=== PATIENT | male | born 1970 | race Caucasian/White ===

== ENCOUNTER 2017-04-17 04:58 | Emergency (ER) | payer MEDICARE, MEDICAID ==
[~2017-04-17] VITALS: Ht 188 cm; Wt 122.5 kg
[~2017-04-17 04:58] MED LIST: ACET500T68 PO; AMOX-556 PO; AMOX-559 PO; APRE30TA2 PO; CEFU500T50 PO; CHOL4PAC15 PO; CLO10 MT; CYCL10TA29 PO; DICL100G39 TOP; FERR325T24 PO; FLU45SYR25 IM ONLY; FLU60SYR30 IM ONLY; FLUC100T35 PO; FURO-45 PO; HYDR-2966 PO; HYDR12.561 PO; IBUP600T22 PO; INF100I IV; LEFL20TA PO; LEFL20TA6 PO; LEVO-85 PO; LEVO25TA61 PO; LIDO40SO MM; LISI20TA29 PO; MORP-18 PO; MORP-181 PO; MORP20CA PO; MORP60TA PO; MOXI400T2 PO; ONDA4TAB PO; OXYC-869 PO; OXYC-870 PO; OXYC15TA79 PO; PNEU0.5D3 IM; POLY119P24 PO; POLY17PO25 PO; PRED-1 PO; PRED2.5T6 PO; PRED20TA6 PO; TIZA-1 PO; TRAM-420 PO; TRIA15CR40 TP; [UNRECOGNIZED DRUG - CODE] PO
[2017-04-17 05:08] VITALS: BP 159/95
[2017-04-17] MEDS ORDERED: DEXAMETHASONE 4 MG TAB PO ONE (05:25)
[2017-04-17] MEDS ORDERED: AMOXICILLIN 500 MG CAP PO ONE (05:25)
[2017-04-17] MEDS ORDERED: ONDANSETRON 4 MG ODT TABDP SL ONE (05:25)
[2017-04-17] MEDS ORDERED: AMOX-362 PO (05:31)
--- NOTE | 2017-04-17 05:32 | ER Report ---
History and Physical Time Seen By MD: 05:26 Hx. of Stated Complaint: Pt. here for nausea, vomiting, and sore throat x 1 week. States his symptoms started a few days after his remicade infusion. HPI/ROS CHIEF COMPLAINT: Sore throat HISTORY OF PRESENT ILLNESS: A 46-year-old male on Remicade for psoriatic arthritis presents with sore throat 1 week worsening with right-sided lymph node swelling anterior cervical chain and increased frequency of nausea and vomiting denies abdominal pain diarrhea loose stools or bloody stools. Concerned about progression and unable to get and see his doctor for approximately 1 week. No other concerns or complaints today. REVIEW OF SYSTEMS: Respiratory: No cough, no dyspnea. Cardiovascular: No chest pain, no palpitations. Gastrointestinal: No vomiting, no abdominal pain. Musculoskeletal: No back pain. Allergies: Coded Allergies: codeine (Verified Allergy, Severe, BRONCHOSPASM, 04/17/17) NSAIDS (Non-Steroidal Anti-Inflamma (Verified Adverse Reaction, Intermediate, NAUSEA/VOMITING, 04/17/17) Home Meds Active Scripts Prednisone (PREDNISONE) 2.5 Mg Tablet, 1-2 TAB PO QDAY, #30 TAB 0 Refills Start after finishing 20mg tabs 2 tabs daily x 3 days 1 tab daily thereafter until starting remicade Prov:IVÁN ESPINO APRN 03/29/17 Morphine Sulfate (MORPHINE SULFATE CR) 60 Mg Tablet.er, 1 TAB PO Q12H, #60 TAB 0 Refills May fill on or after 05/30/17 Prov:IVÁN ESPINO APRN 03/26/17 Morphine Sulfate (MORPHINE SULFATE) 30 Mg Tablet, 1 TAB PO QID Y for PAIN, #120 TAB 0 Refills may fill on or after 05/30/17 Prov:IVÁN ESPINO APRN-C 03/26/17 Furosemide (FUROSEMIDE) 20 Mg Tablet, 1 TAB PO DAILY, #90 TAB 0 Refills Prov:IVÁN ESPINO APRN 02/19/17 Prednisone (PREDNISONE) 20 Mg Tablet, 1-3 TAB PO QDAY, #35 TAB 0 Refills 2 tabs daily x 10 days 1 tab daily x 10 days 1/2 tab daily x 10 days Prov:IVÁN ESPINO APRN 02/15/17 Levothyroxine Sodium (LEVOTHYROXINE SODIUM) 25 Mcg Tablet, 1 TAB PO QDAY, #90 TAB 2 Refills Prov:IVÁN ESPINO APRN [facility] 02/11/17 Triamcinolone Acetonide 0.1% Cr 15 Gm Tube (TRIAMCINOLONE ACETONIDE 0.1% CREAM) 15 Gm Cream..g., 1 LESLY TP BID, #60 G 0 Refills Apply to rash on lower legs until resolved Prov:IVÁN ESPINO APRN [facility] 01/21/17 Lisinopril (LISINOPRIL) 20 Mg Tablet, 1 TAB PO QDAY, #90 TAB 3 Refills Prov:IVÁN ESPINO APRN [facility] 10/05/16 Polyethylene Glycol 3350 (MIRALAX) 119 Gm Powder, 17 GM PO DAILY, #2 BOTTLE 2 Refills Prov:IVÁN ESPINO APRN [facility] 09/04/16 Reported Medications Acetaminophen (TYLENOL EXTRA STRENGTH) 500 Mg Tablet, 1000 MG PO QID 03/20/15 Hx Smoking: Yes Smoking Status: Former Smoker Exposure to Second Hand Smoke?: No Hx Substance Use Disorder: No Hx Alcohol Use: No Constitutional Vital Sign - Last 24 Hours 04/17/17 05:08 Temp 97.8 Pulse 86 Resp 20 B/P (MAP) 159/95 Pulse Ox 96 O2 Delivery Room Air Physical Exam General Appearance: The patient is alert, has no immediate need for airway protection and no current signs of toxicity. No acute distress Eyes: Pupils equal and round no injection. HEENT: Right-sided cervical lymphadenopathy is tender, posterior pharyngeal erythema with slight exudate seen no signs of peritonsillar abscess, tympanic membranes normal bilaterally Respiratory: Chest is non tender, lungs are clear to auscultation. Cardiac: regular rate and rhythm no murmurs gallops or rubs Gastrointestinal: Abdomen is soft and non tender, no masses, bowel sounds normal. Musculoskeletal: Neck: Neck is supple and non tender. Extremities have full range of motion and are non tender. Skin: No rashes or lesions. No edema DIFFERENTIAL DIAGNOSIS: After history and physical exam differential diagnosis was considered for pharyngitis, streptococcal infection, influenza no signs of pneumonia or other SBI Medical Decision Making ED Course/Re-evaluation ED Course Care plan agreed upon Oral fluid challenge after nausea medicine here 1st dose of antibiotics here Decadron for throat pain and swelling Discharge to outpatient follow-up ED return precautions given Decision to Disposition Date: Apr 17, 2017 Decision to Disposition Time: 05:30 Depart Departure Latest Vital Signs Vital Signs Date Time Temp Pulse Resp B/P (MAP) Pulse Ox O2 Delivery O2 Flow Rate FiO2 04/17/17 05:08 97.8 86 20 159/95 96 Room Air Impression: Primary Impression: Pharyngitis, acute Additional Impression: Cervical lymphadenopathy Condition: Improved Disposition: HOME OR SELF-CARE Referrals: IVÁN ESPINO APRN [facility] (PCP) New Scripts Amoxicillin (AMOXICILLIN) 500 Mg Capsule 1 CAP PO Q8H for 10 Days, #30 CAPSULE 0 Refills Prov: MEET BLISS MD 04/17/17 Patient Instructions: Pharyngitis (ED) Problem Qualifiers Primary Impression: Pharyngitis, acute Pharyngitis/tonsillitis etiology: unspecified etiology Qualified Codes: J02.9 - Acute pharyngitis, unspecified MEET BLISS MD Apr 17, 2017 05:32
== END 2017-04-17 05:40 | disposition home or self-care (01) ==
LOC: ER 05:01
DX: J02.9 Acute pharyngitis, unspecified (principal); R59.1 Generalized enlarged lymph nodes
CPT/HCPCS: 99281

== ENCOUNTER 2017-05-16 04:23 | Emergency (ER) | payer MEDICARE, MEDICAID ==
[~2017-05-16 04:23] MED LIST changes: +AMOX-362 PO
--- NOTE | 2017-05-16 04:26 | ER Report ---
History and Physical Time Seen By MD: 04:26 HPI/ROS CHIEF COMPLAINT: Swollen joints can't move, pain everywhere HISTORY OF PRESENT ILLNESS: 46-year-old male with a history of psoriatic arthritis. He recently was started on Remicade. He was weaned off his prednisone. His intervals between Remicade is 8 weeks, which seems unusually long period patient. I think is withdrawing from his steroids. His joints seem swollen. He is noting pain everywhere. He is on chronic pain medication high-dose morphine. Patient notes some difficulty breathing, no chest pain, no fever or chills. REVIEW OF SYSTEMS: Respiratory: No cough, no dyspnea. Cardiovascular: No chest pain, no palpitations. Gastrointestinal: No vomiting, no abdominal pain. Musculoskeletal: As above Allergies: Coded Allergies: codeine (Verified Allergy, Severe, BRONCHOSPASM, 04/17/17) NSAIDS (Non-Steroidal Anti-Inflamma (Verified Adverse Reaction, Intermediate, NAUSEA/VOMITING, 04/17/17) Home Meds Active Scripts Furosemide (FUROSEMIDE) 20 Mg Tablet, 1 TAB PO DAILY, #90 TAB 1 Refill Prov:IVÁN ESPINO APRN 05/16/17 Prednisone 10 Mg Tab (PREDNISONE 10 MG TAB) 10 Mg Tablet, 10 MG PO QDAY Y for reduce arthritis inflammation, #9 2 tabs daily for 3 days 1 tab daily for 3 days Prov:EDGARD CLEVELAND DO 05/16/17 Morphine Sulfate (MORPHINE SULFATE CR) 60 Mg Tablet.er, 1 TAB PO Q12H, #60 TAB 0 Refills May fill on or after 05/30/17 Prov:IVÁN ESPINO APRN 03/26/17 Morphine Sulfate (MORPHINE SULFATE) 30 Mg Tablet, 1 TAB PO QID Y for PAIN, #120 TAB 0 Refills may fill on or after 05/30/17 Prov:IVÁN ESPINO APRN-Delfin 03/26/17 Levothyroxine Sodium (LEVOTHYROXINE SODIUM) 25 Mcg Tablet, 1 TAB PO QDAY, #90 TAB 2 Refills Prov:IVÁN ESPINO APRN-Delfin 02/11/17 Triamcinolone Acetonide 0.1% Cr 15 Gm Tube (TRIAMCINOLONE ACETONIDE 0.1% CREAM) 15 Gm Cream..g., 1 LESLY TP BID, #60 G 0 Refills Apply to rash on lower legs until resolved Prov:IVÁN ESPINO APRN [facility] 01/21/17 Lisinopril (LISINOPRIL) 20 Mg Tablet, 1 TAB PO QDAY, #90 TAB 3 Refills Prov:IVÁN ESPINO APRN [employer] 10/05/16 Polyethylene Glycol 3350 (MIRALAX) 119 Gm Powder, 17 GM PO DAILY, #2 BOTTLE 2 Refills Prov:IVÁN ESPINO APRN [facility] [facility] 09/04/16 Reported Medications Infliximab (REMICADE) 100 Mg Soln, 100 MG IV 05/16/17 Acetaminophen (TYLENOL EXTRA STRENGTH) 500 Mg Tablet, 1000 MG PO QID 03/20/15 Discontinued Scripts Prednisone (PREDNISONE) 2.5 Mg Tablet, 1 TAB PO QDAY, #30 TAB 0 Refills Prov:IVÁN ESPINO APRN [facility] [facility] 04/23/17 Reviewed Nurses Notes: Yes Old Medical Records Reviewed: Yes Hx Smoking: Yes Smoking Status: Former Smoker Exposure to Second Hand Smoke?: No Hx Substance Use Disorder: No Hx Alcohol Use: No Constitutional Vital Sign - Last 24 Hours 05/16/17 05/16/17 05/16/17 05/16/17 04:28 04:29 04:38 04:53 Temp 99.5 Pulse 93 86 88 Resp 22 B/P (MAP) 139/76 (97) 137/76 Pulse Ox 95 90 91 O2 Delivery Room Air 05/16/17 05/16/17 05/16/17 05/16/17 05:08 05:13 05:20 05:28 Pulse 86 85 83 B/P (MAP) 119/68 (85) Pulse Ox 86 88 05/16/17 05:30 B/P (MAP) 111/67 (82) Physical Exam General Appearance: The patient is alert, has no immediate need for airway protection and no current signs of toxicity. Moderate distress HEENT: Pupils equal and round no injection. TMs normal, oropharynx without redness or exudate, mucous membranes are moist Respiratory: Chest is non tender, lungs are clear to auscultation. Cardiac: regular rate and rhythm Gastrointestinal: Abdomen is soft and non tender, no masses, bowel sounds normal. Musculoskeletal: Neck: Neck is supple and non tender. Extremities have full range of motion and are non tender. All joints are warm to the touch and show moderate effusion as well as tenderness Skin: No rashes or lesions. DIFFERENTIAL DIAGNOSIS: After history and physical exam differential diagnosis was considered for acute arthritis, steroid withdrawal, opiate pain medication withdrawal Medical Decision Making ED Course/Re-evaluation Clinical Indication for ER IV: IV Access ED Course Patient admitted to an examination room. H&P is done. The differential diagnoses was considered. Patient likely having withdrawals from his steroids. He's have an acute flare of his psoriatic arthritis. Patient's treated with IV Solu-Medrol 125 mg IV. He reports feeling better. He has plenty of pain medication take at home. He is given a prednisone burst. 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 Decision to Disposition Date: May 16, 2017 Decision to Disposition Time: 05:01 Depart Departure Latest Vital Signs Vital Signs Date Time Temp Pulse Resp B/P (MAP) Pulse Ox O2 Delivery O2 Flow Rate FiO2 05/16/17 05:30 111/67 (82) 05/16/17 05:28 83 88 05/16/17 04:29 99.5 22 Room Air Impression: Primary Impression: Acute arthritis Additional Impressions: History of psoriatic arthritis Chronic pain syndrome Condition: Improved Disposition: HOME OR SELF-CARE Referrals: IVÁN ESPINO APRNP-C (PCP) New Scripts Prednisone 10 Mg Tab (PREDNISONE 10 MG TAB) 10 Mg Tablet 10 MG PO QDAY Y for reduce arthritis inflammation, #9 2 tabs daily for 3 days 1 tab daily for 3 days Prov: EDGARD CLEVELAND DO 05/16/17 Patient Instructions: Arthritis (ED) Additional Instructions: Follow-up with your primary care and journey lineman as soon as possible Problem Qualifiers EDGARD CLEVELAND DO May 16, 2017 04:26
[2017-05-16] MEDS ORDERED: INF100I IV (04:34)
[2017-05-16] MEDS ORDERED: methylPREDNIS SUCC 125 MG/2ML IVP ONE (04:45)
[2017-05-16] MEDS ORDERED: PRED-1 PO (05:03)
[2017-05-16 05:30] VITALS: BP 111/67
[2017-05-16] MEDS ORDERED: FURO-45 PO (16:31)
[2017-05-17] MEDS ORDERED: FURO-45 PO (08:39)
== END 2017-05-16 05:39 | disposition home or self-care (01) ==
LOC: ER 05:17
DX: G89.4 Chronic pain syndrome (principal); L40.50 Arthropathic psoriasis, unspecified
CPT/HCPCS: 96374; 99284; J2930

== ENCOUNTER 2017-05-23 05:39 | Emergency (ER) | payer MEDICARE, MEDICAID ==
--- NOTE | 2017-05-23 05:50 | ER Report ---
History and Physical Time Seen By MD: 05:53 Hx. of Stated Complaint: PT COMPLAINT IS THAT HIS ARTHRITIS IS SO PAINFUL THAT IT IS CAUSING NAUSEA. HPI/ROS CHIEF COMPLAINT: arthritis pain, nausea with vomiting HISTORY OF PRESENT ILLNESS: This is a 46 year old male. He is having an arthritis flare up. Has had about a week of pain that has been steadily worsening. He has an infusion of Remicade scheduled in 5 days and just needs to get through till then. He was on Prednisone in the past and weaned off and has been off for the last month. He mainly has pain in left elbow and left knee. No rashes or redness of the joints. Worsens with weight bearing and range of motion. He denies any fevers or chills. No chest pain or palpitations. No shortness or breath or cough. No abdominal pain. He says the nausea and vomiting is because of the severe pain. Has pain associated with skin cracking from psoriasis on his low back. Allergies: Coded Allergies: codeine (Verified Allergy, Severe, BRONCHOSPASM, 05/23/17) NSAIDS (Non-Steroidal Anti-Inflamma (Verified Adverse Reaction, Intermediate, NAUSEA/VOMITING, 05/23/17) Home Meds Active Scripts Ondansetron (ZOFRAN ODT) 4 Mg Tab.rapdis, 4 MG PO Q6H Y for NAUSEA/VOMITING, # 20 TAB.JERMAINE 0 Refills Prov:TIM AMBROCIO MD 05/23/17 Oxycodone Hcl/Acetaminophen (PERCOCET 5-325 MG TABLET) 1 Each Tablet, 1 EACH PO Q4H Y for PAIN, #12 TAB 0 Refills Prov:TIM AMBROCIO MD 05/23/17 Prednisone (PREDNISONE) 20 Mg Tablet, 60 MG PO QDAY for 4 Days, #12 TAB 0 Refills Prov:TIM AMBROCIO MD 05/23/17 Furosemide (FUROSEMIDE) 20 Mg Tablet, 1 TAB PO DAILY, #90 TAB 1 Refill Prov:IVÁN ESPINO APRN 05/17/17 Morphine Sulfate (MORPHINE SULFATE CR) 60 Mg Tablet.er, 1 TAB PO Q12H, #60 TAB 0 Refills May fill on or after 05/30/17 Prov:IVÁN ESPINO APRN-Delfin 03/26/17 Morphine Sulfate (MORPHINE SULFATE) 30 Mg Tablet, 1 TAB PO QID Y for PAIN, #120 TAB 0 Refills may fill on or after 05/30/17 Prov:IVÁN ESPINO APRN-Delfin 03/26/17 Levothyroxine Sodium (LEVOTHYROXINE SODIUM) 25 Mcg Tablet, 1 TAB PO QDAY, #90 TAB 2 Refills Prov:IVÁN ESPINO APRN-C 02/11/17 Lisinopril (LISINOPRIL) 20 Mg Tablet, 1 TAB PO QDAY, #90 TAB 3 Refills Prov:IVÁN ESPINO APRN-C 10/05/16 Polyethylene Glycol 3350 (MIRALAX) 119 Gm Powder, 17 GM PO DAILY, #2 BOTTLE 2 Refills Prov:IVÁN ESPINO APRN-C 09/04/16 Reported Medications Infliximab (REMICADE) 100 Mg Soln, 100 MG IV 05/16/17 Acetaminophen (TYLENOL EXTRA STRENGTH) 500 Mg Tablet, 1000 MG PO QID 03/20/15 Discontinued Scripts Prednisone 10 Mg Tab (PREDNISONE 10 MG TAB) 10 Mg Tablet, 10 MG PO QDAY Y for reduce arthritis inflammation, #9 2 tabs daily for 3 days 1 tab daily for 3 days Prov:EDGARD CLEVELAND DO 05/16/17 Triamcinolone Acetonide 0.1% Cr 15 Gm Tube (TRIAMCINOLONE ACETONIDE 0.1% CREAM) 15 Gm Cream..g., 1 LESLY TP BID, #60 G 0 Refills Apply to rash on lower legs until resolved Prov:IVÁN ESPINO APRN 01/21/17 Prednisone (PREDNISONE) 2.5 Mg Tablet, 1 TAB PO QDAY, #30 TAB 0 Refills Prov:IVÁN ESPINO APRN-C 04/23/17 Furosemide (FUROSEMIDE) 20 Mg Tablet, 1 TAB PO DAILY, #90 TAB 0 Refills Prov:IVÁN ESPINO APRN 02/19/17 Reviewed Nurses Notes: Yes Hx Smoking: Yes Smoking Status: Former Smoker Exposure to Second Hand Smoke?: No Hx Substance Use Disorder: No Hx Alcohol Use: No Constitutional Vital Sign - Last 24 Hours 05/23/17 05/23/17 05:47 07:00 Temp 98.4 Pulse 93 85 Resp 16 16 B/P (MAP) 137/68 109/66 (80) Pulse Ox 94 91 O2 Delivery Room Air Room Air Physical Exam General Appearance: The patient is alert. Acute distress because of nausea and pain. Eyes: Pupils are equal, round. No pallor, injection or icterus. ENT: Mucous membranes are moist. Neck: Supple and non tender. Respiratory: Lungs are clear to auscultation. Cardiovascular: Regular rate and rhythm. No murmurs, gallops or rubs. Gastrointestinal: Abdomen is soft with diffuse mild discomfort but no focal tenderness. Nondistended. No rebound or guarding. Normal active bowel sounds. Neurological: Alert and oriented x3. Normal sensation in extremities. Skin: Warm and dry. Psoriasis rash on low back. Without redness or warmth over the psoriasis areas. No redness or rash over left elbow and left knee. Skin over the elbow is not increased temperature. Knee has a slight increased warmth compared to surrounding skin, but very mild. Musculoskeletal: No tenderness of the joints with palpation, but do increase in pain with range of motion. DIFFERENTIAL DIAGNOSIS: After history and physical exam, differential diagnosis was considered for increasing pain with arthritis flare up. Medical Decision Making ED Course/Re-evaluation ED Course No obvious signs of infection and discussed this possibility with the patient. He does not really want to do labs at this time. He has been through this before and would really just want to have Prednisone at this time. We talked about his past use of prednisone and has been on high doses. We will give him Prednisone 60mg once a day for 5 days as a burst. I also offered to give him some Percocet and Zofran as well. If pain is not improving or if he is having fevers, worsening pain, hot skin over the joints, he agreed to come back in for further evaluation. Decision to Disposition Date: May 23, 2017 Decision to Disposition Time: 06:45 Depart Departure Latest Vital Signs Vital Signs Date Time Temp Pulse Resp B/P (MAP) Pulse Ox O2 Delivery O2 Flow Rate FiO2 05/23/17 07:00 85 16 109/66 (80) 91 Room Air 05/23/17 05:47 98.4 Impression: Primary Impression: Psoriatic arthritis Condition: Improved Disposition: HOME OR SELF-CARE Referrals: IVÁN ESPINO APRN [employer] (PCP) New Scripts Ondansetron (ZOFRAN ODT) 4 Mg Tab.rapdis 4 MG PO Q6H Y for NAUSEA/VOMITING, #20 TAB.JERMAINE 0 Refills Prov: TIM AMBROCIO MD 05/23/17 Oxycodone Hcl/Acetaminophen (PERCOCET 5-325 MG TABLET) 1 Each Tablet 1 EACH PO Q4H Y for PAIN, #12 TAB 0 Refills Prov: TIM AMBROCIO MD 05/23/17 Prednisone (PREDNISONE) 20 Mg Tablet 60 MG PO QDAY for 4 Days, #12 TAB 0 Refills Prov: TIM AMBROCIO MD 05/23/17 Patient Instructions: Arthritis (ED), Psoriasis (ED) Additional Instructions: If you develop fevers and chills, worsening of pain, or hot skin over the joints , please return for re-evaluation. Take Prednisone 20mg, take 3 tablets once a day for 4 more days starting tomorrow. Take Percocet 5/325, one every 4 hours as needed for pain. Take Zofran 4mg, one every 6 hours as needed for nausea. TIM AMBROCIO MD May 23, 2017 05:50
[2017-05-23] MEDS ORDERED: oxyCODONE/ACETAMIN 5/325MG TH 2 TAB/BOTTLE PO ONE (06:10)
[2017-05-23] MEDS ORDERED: predniSONE 20 MG TAB PO ONE (06:10)
[2017-05-23] MEDS ORDERED: ONDANSETRON 4 MG ODT TH SL ONE (06:10)
[2017-05-23] MEDS ORDERED: ONDANSETRON 4 MG ODT TABDP SL ONE (06:10)
[2017-05-23] MEDS ORDERED: PRED20TA6 PO (06:47)
[2017-05-23] MEDS ORDERED: OXYC-865 PO (06:47)
[2017-05-23] MEDS ORDERED: ONDA4TAB PO (06:47)
[2017-05-23 07:00] VITALS: BP 109/66
== END 2017-05-23 06:59 | disposition home or self-care (01) ==
LOC: ER 06:31
DX: L40.50 Arthropathic psoriasis, unspecified (principal)
CPT/HCPCS: 99284; A9270; J7512; Q0162; S0119

== ENCOUNTER 2017-05-28 07:47 | Outpatient (RCR) | payer MEDICARE, MEDICAID ==
[2017-04-05] MEDS: NS(*) 0.9% 100 ML BAG 100 ML IVPB PRN (08:30)
[2017-04-05] MEDS: LORATADINE 10 MG TAB PO PRN (08:56)
[2017-04-05] MEDS: ACETAMINOPHEN 500 MG TAB PO PRN (08:56)
[2017-04-05 08:57] LABS: PLATELET COUNT, AUTOMATED 371 K/uL (150-450)
[~2017-05-28] VITALS: Ht 188 cm; Wt 132.4 kg
[~2017-05-28 07:47] MED LIST changes: +ALTEPLASE RECOMB 2 MG VIAL IVP PRN; +DEXTROSE 5%(*) 100 ML BAG 100 ML IVPB PRN; +HEPARIN FLSH (PORT) 500 UN/5ML IVP PRN; +LIDOCAINE/SOD BICARB 8.4% SYR ID PRN; +NS(*) 0.9% 500 ML BAG 500 ML IV PRN; +OXYC-865 PO; +WATER STERILE 10 ML VIAL IVP PRN; +inFLIXimab 100 MG VIAL 700 MG in NS(*) 0.9% 250 ML BAG 250 ML IVPB ONE
[2017-05-28 08:32] LABS: PLATELET COUNT, AUTOMATED 440 K/uL (150-450)
[2017-05-28 08:35] VITALS: BP 163/90
[2017-05-28] MEDS: ACETAMINOPHEN 500 MG TAB PO PRN (08:48)
[2017-05-28] MEDS: NS(*) 0.9% 100 ML BAG 100 ML IVPB PRN (08:49)
[2017-05-28] MEDS: LORATADINE 10 MG TAB PO PRN (08:49)
[2017-05-28] MEDS ORDERED: inFLIXimab 100 MG VIAL 700 MG in NS(*) 0.9% 250 ML BAG 250 ML IVPB ONE (09:30)
[2017-05-28 13:06] VITALS: BP 156/103
[2017-06-06] MEDS ORDERED: PRED20TA6 PO (05:17)
[2017-06-20] MEDS ORDERED: MORP-18 PO ×3 (11:00→11:12)
[2017-06-20] MEDS ORDERED: MORP60TA PO ×3 (11:00→11:12)
[2017-06-20] MEDS ORDERED: LISI-374 PO (11:12)
[2017-07-04] MEDS ORDERED: POTA-23 PO (12:12)
== END 2017-07-03 ==
LOC: SPU 07:47
PROVIDERS: ATTEND Nurse Practitioner Family
DX: L40.50 Arthropathic psoriasis, unspecified (principal); L40.9 Psoriasis, unspecified; Z79.899 Other long term (current) drug therapy
CPT/HCPCS: 36415; 85025; 85651; 86140; 96365; 96366; A9270; J1745; J7050; 82040; 82247; 82310; 82374; 82435; 82565; 82947; 84075; 84132; 84155; 84295; 84450; 84460; 84520; 96413; 96415

== ENCOUNTER 2017-06-06 05:03 | Emergency (ER) | payer MEDICARE, MEDICAID ==
[~2017-06-06 05:03] MED LIST changes: -ALTEPLASE RECOMB 2 MG VIAL IVP PRN; -DEXTROSE 5%(*) 100 ML BAG 100 ML IVPB PRN; -HEPARIN FLSH (PORT) 500 UN/5ML IVP PRN; -LIDOCAINE/SOD BICARB 8.4% SYR ID PRN; -NS(*) 0.9% 500 ML BAG 500 ML IV PRN; -WATER STERILE 10 ML VIAL IVP PRN; -inFLIXimab 100 MG VIAL 700 MG in NS(*) 0.9% 250 ML BAG 250 ML IVPB ONE
--- NOTE | 2017-06-06 05:07 | ER Report ---
History and Physical Time Seen By MD: 05:06 HPI/ROS CHIEF COMPLAINT: Diffuse joint swelling and stiffness HISTORY OF PRESENT ILLNESS: 46-year-old male presents ambulatory to the ER complaining of psoriatic arthritis flare up. Patient's been seen in 2 previous occasions 05/16 and 05/23 with similar presentation. Patient notes that he began to stiffen up last night. He was on a prednisone burst from the of the . He was post follow-up with his primary care on the . Apparently his appointment was canceled due to his primary care providers family emergency. Patient notes stiffness in bilateral knees, right wrist, left elbow and left shoulder. Patient denies symptoms of fever, chills, productive cough or sore throat. REVIEW OF SYSTEMS: Respiratory: No cough, no dyspnea. Cardiovascular: No chest pain, no palpitations. Gastrointestinal: No vomiting, no abdominal pain. Musculoskeletal: As above Allergies: Coded Allergies: codeine (Verified Allergy, Severe, BRONCHOSPASM, 06/06/17) NSAIDS (Non-Steroidal Anti-Inflamma (Verified Adverse Reaction, Intermediate, NAUSEA/VOMITING, 06/06/17) Home Meds Active Scripts Prednisone (PREDNISONE) 20 Mg Tablet, 60 MG PO QDAY for psoriatic arthritis flare for 7 Days, #21 Prov:EDGARD CLEVELAND DO 06/06/17 Ondansetron (ZOFRAN ODT) 4 Mg Tab.rapdis, 4 MG PO Q6H Y for NAUSEA/VOMITING, # 20 TAB.JERMAINE 0 Refills Prov:TIM AMBROCIO MD 05/23/17 Furosemide (FUROSEMIDE) 20 Mg Tablet, 1 TAB PO DAILY, #90 TAB 1 Refill Prov:IVÁN ESPINO APRN 05/17/17 Morphine Sulfate (MORPHINE SULFATE CR) 60 Mg Tablet.er, 1 TAB PO Q12H, #60 TAB 0 Refills May fill on or after 05/30/17 Prov:IVÁN ESPINO APRN 03/26/17 Morphine Sulfate (MORPHINE SULFATE) 30 Mg Tablet, 1 TAB PO QID Y for PAIN, #120 TAB 0 Refills may fill on or after 05/30/17 Prov:IVÁN ESPINO APRN 03/26/17 Levothyroxine Sodium (LEVOTHYROXINE SODIUM) 25 Mcg Tablet, 1 TAB PO QDAY, #90 TAB 2 Refills Prov:IVÁN ESPINO APRN [employer] [employer] 02/11/17 Lisinopril (LISINOPRIL) 20 Mg Tablet, 1 TAB PO QDAY, #90 TAB 3 Refills Prov:IVÁN ESPINO APRN [employer] 10/05/16 Polyethylene Glycol 3350 (MIRALAX) 119 Gm Powder, 17 GM PO DAILY, #2 BOTTLE 2 Refills Prov:IVÁN ESPINO APRN [employer] 09/04/16 Reported Medications Infliximab (REMICADE) 100 Mg Soln, 100 MG IV 05/16/17 Acetaminophen (TYLENOL EXTRA STRENGTH) 500 Mg Tablet, 1000 MG PO QID 03/20/15 Discontinued Scripts Oxycodone Hcl/Acetaminophen (PERCOCET 5-325 MG TABLET) 1 Each Tablet, 1 EACH PO Q4H Y for PAIN, #12 TAB 0 Refills Prov:TIM AMBROCIO MD 05/23/17 Prednisone (PREDNISONE) 20 Mg Tablet, 60 MG PO QDAY for 4 Days, #12 TAB 0 Refills Prov:TIM AMBROCIO MD 05/23/17 Past Medical/Surgical History Psoriatic arthritis on immunosuppression Reviewed Nurses Notes: Yes Old Medical Records Reviewed: Yes Hx Smoking: Yes Smoking Status: Former Smoker Exposure to Second Hand Smoke?: No Hx Substance Use Disorder: No Hx Alcohol Use: No Physical Exam General Appearance: The patient is alert, has no immediate need for airway protection and no current signs of toxicity. Her distress Eyes: Pupils equal and round no injection. Respiratory: Chest is non tender, lungs are clear to auscultation. Cardiac: regular rate and rhythm Gastrointestinal: Abdomen is soft and non tender, no masses, bowel sounds normal. Musculoskeletal: Neck: Neck is supple and non tender. Extremities have full range of motion and are non tender. Numerous swollen joints, positive joint effusion, tenderness, warmth Skin: No rashes or lesions. DIFFERENTIAL DIAGNOSIS: After history and physical exam differential diagnosis was considered for arthritis flare, septic joint, Medical Decision Making ED Course/Re-evaluation ED Course Patient was admitted to an examination room. H&P was done. The differential diagnoses was considered. Patient clinically with an acute arthritis flare. He is a known history of psoriatic arthritis on immunosuppression. He's been seen on previous occasions with acute arthritis flares. He responds well to prednisone orally. He's advised to follow-up with his [facility]. Decision to Disposition Date: Jun 06, 2017 Decision to Disposition Time: 05:15 Depart Departure Impression: Primary Impression: Acute arthritis Additional Impression: History of psoriatic arthritis Condition: Improved Disposition: HOME OR SELF-CARE Referrals: IVÁN ESPINO APRN [employer] (PCP) New Scripts Prednisone (PREDNISONE) 20 Mg Tablet 60 MG PO QDAY for psoriatic arthritis flare for 7 Days, #21 Prov: EDGARD CLEVELAND DO 06/06/17 Patient Instructions: Arthritis (ED) Additional Instructions: Follow-up with your primary care and [facility] specialists as planned Problem Qualifiers EDGARD CLEVELAND DO Jun 06, 2017 05:07
[2017-06-06] MEDS ORDERED: PRED20TA6 PO (05:17)
[2017-06-06] MEDS ORDERED: predniSONE 20 MG TAB PO ONE (05:20)
== END 2017-06-06 05:25 | disposition home or self-care (01) ==
LOC: ER 05:06
DX: L40.50 Arthropathic psoriasis, unspecified (principal)
CPT/HCPCS: 99282

== ENCOUNTER → 2017-07-04 | Outpatient (CLI) | payer MEDICARE, MEDICAID ==
[~2017-07-04] MED LIST changes: +LISI-374 PO; +POTA-23 PO
== END ==
LOC: LAB 09:18
PROVIDERS: ATTEND Nurse Practitioner Family
DX: I10 Essential (primary) hypertension (principal)
CPT/HCPCS: 36415; 82310; 82374; 82435; 82565; 82947; 84132; 84295; 84520

== ENCOUNTER → 2017-07-08 | Outpatient (CLI) | payer MEDICARE, MEDICAID | LOC: LAB 14:31 | PROVIDERS: ATTEND Nurse Practitioner Family | DX: E87.6 Hypokalemia (principal) | CPT/HCPCS: 36415; 82310; 82374; 82435; 82565; 82947; 84132; 84295; 84520 ==

== ENCOUNTER 2017-09-09 18:14 | Emergency (ER) | payer MEDICARE, MEDICAID ==
[~2017-09-09 18:14] MED LIST changes: +METO25TA23 PO
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
[2017-09-09 18:37] VITALS: BP 136/84
[2017-09-09] MEDS ORDERED: predniSONE 20 MG TAB PO ONE (18:45)
[2017-09-09] MEDS ORDERED: PRED20TA6 PO (18:48)
== END 2017-09-09 19:01 | disposition home or self-care (01) ==
LOC: ER 18:52
DX: L40.50 Arthropathic psoriasis, unspecified (principal); G89.29 Other chronic pain
CPT/HCPCS: 99283; J7512

== ENCOUNTER 2017-09-17 08:20 | Outpatient (RCR) | payer MEDICARE, MEDICAID ==
[2017-07-23 08:11] VITALS: BP 151/85
[2017-07-23 08:37] LABS: PLATELET COUNT, AUTOMATED 415 K/uL (150-450)
[2017-07-23] MEDS: LORATADINE 10 MG TAB PO PRN (08:51)
[2017-07-23] MEDS: ACETAMINOPHEN 500 MG TAB PO PRN (08:51)
[2017-07-23] MEDS: NS(*) 0.9% 100 ML BAG 100 ML IVPB PRN (08:51)
[~2017-09-17 08:20] MED LIST changes: +DEXTROSE 5%(*) 100 ML BAG 100 ML IVPB PRN; +LIDOCAINE/SOD BICARB 8.4% SYR ID PRN; +diphenhydrAMINE 50 MG/ML VIAL IVP PRN; +inFLIXimab 100 MG VIAL 700 MG in NS(*) 0.9% 250 ML BAG 250 ML IVPB ONE
[2017-09-17 08:25] VITALS: BP 141/79
[2017-09-17] MEDS: NS(*) 0.9% 100 ML BAG 100 ML IVPB PRN (08:38)
[2017-09-17 08:39] LABS: PLATELET COUNT, AUTOMATED 361 K/uL (150-450)
[2017-09-17] MEDS: ACETAMINOPHEN 500 MG TAB PO PRN (08:40)
[2017-09-17] MEDS: LORATADINE 10 MG TAB PO PRN (08:40)
[2017-09-17] MEDS ORDERED: inFLIXimab 100 MG VIAL 700 MG in NS(*) 0.9% 250 ML BAG 250 ML IVPB ONE (09:30)
[2017-09-17 11:19] VITALS: BP 155/88
[2017-09-27] MEDS ORDERED: MORP60TA PO (15:25)
[2017-09-27] MEDS ORDERED: MORP-18 PO (15:25)
== END 2017-09-25 13:58 | disposition home or self-care (01) ==
LOC: SPU 08:20
PROVIDERS: ATTEND Nurse Practitioner Family
DX: L40.50 Arthropathic psoriasis, unspecified (principal)
CPT/HCPCS: 85025; 85651; 86140; 96413; 96415; A9270; J1745; J7050; 82040; 82247; 82310; 82374; 82435; 82565; 82947; 84075; 84132; 84155; 84295; 84450; 84460; 84520

== ENCOUNTER 2017-11-10 10:50 | Emergency (ER) | payer MEDICARE, MEDICAID ==
[~2017-11-10 10:50] MED LIST changes: -DEXTROSE 5%(*) 100 ML BAG 100 ML IVPB PRN; -LIDOCAINE/SOD BICARB 8.4% SYR ID PRN; -diphenhydrAMINE 50 MG/ML VIAL IVP PRN; -inFLIXimab 100 MG VIAL 700 MG in NS(*) 0.9% 250 ML BAG 250 ML IVPB ONE
--- NOTE | 2017-11-10 11:00 | ER Report ---
History and Physical Time Seen By MD: 11:01 Hx. of Stated Complaint: PT PRESENTS WITH "DENTAL ABSCESS" STATES HIS TOOTH BROKE MIDDLE OF LAST WEEK, AND HAS APPT ON SATURDAY HPI/ROS CHIEF COMPLAINT: Broken tooth, tooth pain HISTORY OF PRESENT ILLNESS: 47-year-old male patient presents to emergency room with complaint of having a broken tooth and tooth pain. Patient states that he's been having problems with this since Saturday. He states that the pain has gotten significantly worse. He states that he's not able to eat very well due to the pain. He's been able to drink without any difficulties, but has to avoid temperature extremes. He denies having any fevers, chills, nausea, vomiting or diarrhea. Patient states he has not taken any medication for this. He is noted that he has some swelling around that tooth is concerned that he may have a developing abscess. Allergies: Coded Allergies: codeine (Verified Allergy, Severe, BRONCHOSPASM, 11/10/17) NSAIDS (Non-Steroidal Anti-Inflamma (Verified Adverse Reaction, Intermediate, NAUSEA/VOMITING, 11/10/17) Home Meds Active Scripts Tramadol Hcl (TRAMADOL HCL) 50 Mg Tablet, 50 MG PO Q4-6H, #6 TAB Prov:BRITT HANDY [facility] 11/10/17 Amoxicillin 500 Mg Tab (AMOXICILLIN 500 MG TAB) 500 Mg Tablet, 1 TAB PO Q8H, #30 TAB Prov:BRITT HANDY [facility] 11/10/17 Lisinopril (LISINOPRIL) 40 Mg Tablet, 1 TAB PO QDAY, #90 TAB 0 Refills Prov:IVÁN ESPINO APRN-Delfin 10/15/17 Morphine Sulfate (MORPHINE SULFATE CR) 60 Mg Tablet.er, 1 TAB PO Q12H, #60 TAB 0 Refills May fill on or after 11/26/17 Prov:IVÁN ESPINO APRN-Delfin 10/07/17 Morphine Sulfate (MORPHINE SULFATE) 30 Mg Tablet, 1 TAB PO QID PRN for PAIN, #120 TAB 0 Refills May fill on or after 11/26/17 Prov:IVÁN ESPINO APRN-Delfin 10/07/17 Metoprolol Succinate (METOPROLOL SUCCINATE) 25 Mg Tab.er.24h, 1 TAB PO DAILY, #90 TAB 0 Refills Prov:IVÁN ESPINO APRN PULMONARY PHYSICIAN-C 09/03/17 Polyethylene Glycol 3350 (MIRALAX) 119 Gm Powder, 17 GM PO DAILY, #2 BOTTLE 1 Refill Prov:IVÁN ESPINO APRN PULMONARY PHYSICIAN-C 08/07/17 Levothyroxine Sodium (LEVOTHYROXINE SODIUM) 25 Mcg Tablet, 1 TAB PO QDAY, #90 TAB 2 Refills Prov:IVÁN ESPINO APRN PULMONARY PHYSICIAN-C 02/11/17 Reported Medications Infliximab (REMICADE) 100 Mg Soln, 100 MG IV 05/16/17 Acetaminophen (TYLENOL EXTRA STRENGTH) 500 Mg Tablet, 1000 MG PO QID 03/20/15 Past Medical/Surgical History Patient has a past medical history of psoriatic arthritis, back pain, psoriasis, fibromyalgia. Patient has surgical history of left inguinal hernia repair, right knee surgery, right hip surgery. Reviewed Nurses Notes: Yes Hx Smoking: Yes Smoking Status: Former Smoker Exposure to Second Hand Smoke?: No Hx Substance Use Disorder: No Hx Alcohol Use: No Constitutional Vital Sign - Last 24 Hours 11/10/17 11/10/17 10:53 11:41 Temp 97.7 Pulse 78 80 Resp 20 20 B/P (MAP) 158/91 143/90 (107) Pulse Ox 95 92 O2 Delivery Room Air Room Air Physical Exam General appearance: Alert no distress. Respiratory: Chest is non tender, lungs are clear to auscultation. Cardiac: Regular rate and rhythm. ENT: Tympanic membranes are pearly-robbins, auditory canals are patent, mucus mucous membranes are moist. Patient does have several teeth are missing, tooth #22 however is broken to the medial aspect. The gum around that does appear to be slightly swollen. DIFFERENTIAL DIAGNOSIS: After history and physical exam differential diagnosis was considered for dental infection, broken tooth, exposed nerve, dental abscess. Medical Decision Making ED Course/Re-evaluation ED Course Patient was admitted to an exam room, history and physical were obtained. Differential diagnoses were considered. On examination patient does have several teeth that are missing, tooth #22 is broken on the medial aspect. He does have some swelling to the gum at the bottom of tooth #22 and 23. Patient also does have some enlarged lymph nodes. I do believe patient does need antibiotics, however doesn't have a drainable abscess at this point in time. We will go ahead and put him on antibiotics. Due to the nature of the fractured tooth and the likelihood of having an exposed nerve I did go ahead and put in a temporary filling. Patient is to follow-up with his dentist on Saturday as he states has previously scheduled. Patient verbalized understanding and agreement. Decision to Disposition Date: Nov 10, 2017 Decision to Disposition Time: 11:34 Depart Departure Latest Vital Signs Vital Signs Date Time Temp Pulse Resp B/P (MAP) Pulse Ox O2 Delivery O2 Flow Rate FiO2 11/10/17 11:41 80 20 143/90 (107) 92 Room Air 11/10/17 10:53 97.7 Impression: Primary Impression: Toothache Condition: Improved Disposition: HOME OR SELF-CARE Referrals: IVÁN ESPINO APRN-C (PCP) New Scripts Tramadol Hcl (TRAMADOL HCL) 50 Mg Tablet 50 MG PO Q4-6H, #6 TAB Prov: BRITT HANDY 11/10/17 Amoxicillin 500 Mg Tab (AMOXICILLIN 500 MG TAB) 500 Mg Tablet 1 TAB PO Q8H, #30 TAB Prov: BRITT HANDY 11/10/17 Patient Instructions: Toothache (ED) Additional Instructions: Rinse mouth with warm salt water after every meal. Eat soft foods. Follow up with your dentist on Saturday as scheduled. Return to the ER if condition worsens. BRITT HANDY Nov 10, 2017 11:00
[2017-11-10] MEDS ORDERED: TRAM-420 PO (11:32)
[2017-11-10] MEDS ORDERED: AMOX500T10 PO (11:32)
[2017-11-10 11:41] VITALS: BP 143/90
== END 2017-11-10 11:42 | disposition home or self-care (01) ==
LOC: ER 11:19
DX: K08.89 Other specified disorders of teeth and supporting structures (principal); K03.81 Cracked tooth
CPT/HCPCS: 99282

== ENCOUNTER 2017-12-24 08:24 | Outpatient (RCR) | payer MEDICARE, MEDICAID ==
[2017-11-08 08:49] VITALS: BP 131/75
[2017-11-08] MEDS: LORATADINE 10 MG TAB PO PRN (09:11)
[2017-11-08] MEDS: ACETAMINOPHEN 500 MG TAB PO PRN (09:11)
[2017-11-08] MEDS: NS(*) 0.9% 100 ML BAG 100 ML IVPB PRN (09:11)
[2017-11-08 09:14] LABS: PLATELET COUNT, AUTOMATED 289 K/uL (150-450)
[2017-11-08 12:24] VITALS: BP 130/83
[~2017-12-24 08:24] MED LIST changes: +DEXTROSE 5%(*) 100 ML BAG 100 ML IVPB PRN; +LIDOCAINE/SOD BICARB 8.4% SYR ID PRN; +inFLIXimab 100 MG VIAL 700 MG in NS(*) 0.9% 250 ML BAG 250 ML IVPB ONE; +riTUXimab 500 MG/50 ML SDV 500 MG, riTUXimab 100 MG/10 ML SDV 200 MG in NS(*) 0.9% 1000... IV ONE
[2017-12-24] MEDS: ACETAMINOPHEN 500 MG TAB PO PRN (08:43)
[2017-12-24] MEDS: LORATADINE 10 MG TAB PO PRN (08:43)
[2017-12-24] MEDS: NS(*) 0.9% 100 ML BAG 100 ML IVPB PRN (08:44)
[2017-12-24 09:01] VITALS: BP 142/89
[2017-12-24 09:05] LABS: PLATELET COUNT, AUTOMATED 320 K/uL (150-450)
[2017-12-24] MEDS ORDERED: inFLIXimab 100 MG VIAL 700 MG in NS(*) 0.9% 250 ML BAG 250 ML IVPB ONE (10:00)
[2018-01-02] MEDS ORDERED: PRED20TA6 PO (05:31)
[2018-01-06] MEDS ORDERED: FLU60VIA41 IM (09:27)
[2018-01-06] MEDS ORDERED: PRED20TA6 PO (09:47)
[2018-01-06] MEDS ORDERED: MORP60TA PO ×2 (09:51→09:56)
[2018-01-06] MEDS ORDERED: MORP-18 PO ×2 (09:51→09:56)
[2018-01-06] MEDS ORDERED: DULO60CA7 PO (09:56)
[2018-01-06] MEDS ORDERED: DULO30CA6 PO (09:56)
[2018-01-24] MEDS ORDERED: POLY119P24 PO (13:28)
== END 2018-02-05 ==
LOC: SPU 08:24
PROVIDERS: ATTEND Internal Medicine Rheumatology
DX: L40.50 Arthropathic psoriasis, unspecified (principal); Z79.899 Other long term (current) drug therapy
CPT/HCPCS: 82607; 82728; 82746; 83540; 83550; 84443; 85025; 85045; 85651; 86140; 96413; 96415; A9270; J1745; J7050; 82040; 82247; 82310; 82374; 82435; 82565; 82947; 84075; 84132; 84155; 84295; 84450; 84460; 84520

== ENCOUNTER → 2017-12-24 | Outpatient (CLI) | payer MEDICARE, MEDICAID ==
[~2017-12-24] MED LIST changes: +AMOX500T10 PO
== END ==
LOC: SPU 08:21
PROVIDERS: ATTEND Nurse Practitioner Family
DX: D64.9 Anemia, unspecified (principal)
CPT/HCPCS: 82607; 82728; 82746; 83540; 83550; 84443; 85045

== ENCOUNTER → 2017-12-27 | Outpatient (REF) | payer MEDICARE, MEDICAID ==
[~2017-12-27] MED LIST changes: -DEXTROSE 5%(*) 100 ML BAG 100 ML IVPB PRN; -LIDOCAINE/SOD BICARB 8.4% SYR ID PRN; -inFLIXimab 100 MG VIAL 700 MG in NS(*) 0.9% 250 ML BAG 250 ML IVPB ONE; -riTUXimab 500 MG/50 ML SDV 500 MG, riTUXimab 100 MG/10 ML SDV 200 MG in NS(*) 0.9% 1000... IV ONE
== END ==
LOC: ZZSENDIN 15:12
PROVIDERS: ATTEND Nurse Practitioner Family
DX: D64.9 Anemia, unspecified (principal)
CPT/HCPCS: 82274

== ENCOUNTER 2017-12-30 14:36 | Emergency (ER) | payer MEDICARE, MEDICAID ==
[2017-12-30 14:40] VITALS: BP 132/73
--- NOTE | 2017-12-30 14:53 | ER Report ---
History and Physical Time Seen By MD: 14:52 Hx. of Stated Complaint: PATIENT REPORTS THAT HE HAS A PAINFUL LUMP ON THE BOTTOM OF HIS LEFT FOOT. HE NOTICED IT THIS MORNING HPI/ROS 47-year-old male with history of psoriatic arthritis is complaining of pain to the ball of his left foot congenital deformities of foot increased pain swelling since this am. no trauma Allergies: Coded Allergies: codeine (Verified Allergy, Severe, BRONCHOSPASM, 11/10/17) NSAIDS (Non-Steroidal Anti-Inflamma (Verified Adverse Reaction, Intermediate, NAUSEA/VOMITING, 11/10/17) Home Meds Active Scripts Morphine Sulfate (MORPHINE SULFATE CR) 60 Mg Tablet.er, 1 TAB PO Q12H, #60 TAB 0 Refills Prov:IVÁN ESPINO APRNP-C 12/23/17 Morphine Sulfate (MORPHINE SULFATE) 30 Mg Tablet, 1 TAB PO QID PRN for PAIN, #120 TAB 0 Refills Prov:IVÁN ESPINO APRNP-C 12/23/17 Metoprolol Succinate (METOPROLOL SUCCINATE) 25 Mg Tab.er.24h, 1 TAB PO DAILY, #90 TAB 1 Refill Prov:IVÁN ESPINO APRNP-C 12/04/17 Levothyroxine Sodium (LEVOTHYROXINE SODIUM) 25 Mcg Tablet, 1 TAB PO QDAY, #90 TAB 0 Refills Prov:IVÁN ESPINO APRNP-C 11/18/17 Tramadol Hcl (TRAMADOL HCL) 50 Mg Tablet, 50 MG PO Q4-6H, #6 TAB Prov:BRITT HANDY 11/10/17 Lisinopril (LISINOPRIL) 40 Mg Tablet, 1 TAB PO QDAY, #90 TAB 0 Refills Prov:IVÁN ESPINO APRNP-C 10/15/17 Polyethylene Glycol 3350 (MIRALAX) 119 Gm Powder, 17 GM PO DAILY, #2 BOTTLE 1 Refill Prov:IVÁN ESPINO APRNP-C 08/07/17 Reported Medications Infliximab (REMICADE) 100 Mg Soln, 100 MG IV 05/16/17 Acetaminophen (TYLENOL EXTRA STRENGTH) 500 Mg Tablet, 1000 MG PO QID 03/20/15 Discontinued Scripts Amoxicillin 500 Mg Tab (AMOXICILLIN 500 MG TAB) 500 Mg Tablet, 1 TAB PO Q8H, #30 TAB Prov:BRITT HANDY TIME CLOCK REPAIRER 11/10/17 Past Medical/Surgical History Hypertension, left inguinal hernia surgery, fibromyalgia, psoriatic arthritis, Hx Smoking: Yes Smoking Status: Former Smoker Exposure to Second Hand Smoke?: No Hx Substance Use Disorder: No Hx Alcohol Use: No Constitutional Vital Sign - Last 24 Hours 12/30/17 14:40 Temp 98.0 Pulse 95 Resp 20 B/P (MAP) 132/73 Pulse Ox 93 O2 Delivery Room Air Physical Exam alert oriented nad , hrr, lungs cta abd soft, pian ball of left foot slightly reddened, no wound noted exteriorly Medical Decision Making Data Points Result Diagram: 12/30/17 1512 Laboratory Hematology Test 12/30/17 15:12 Red Blood Count 4.88 M/uL (4.00-5.60) Mean Corpuscular Volume 87.5 fL (80.0-96.0) Mean Corpuscular Hemoglobin 29.6 pg (26.0-33.0) Mean Corpuscular Hemoglobin Concent 33.8 g/dL (32.0-36.0) Red Cell Distribution Width 16.0 % (11.5-14.5) Mean Platelet Volume 8.7 fL (7.2-11.1) Neutrophils (%) (Auto) 63.1 % (39.4-72.5) Lymphocytes (%) (Auto) 26.9 % (17.6-49.6) Monocytes (%) (Auto) 7.5 % (4.1-12.4) Eosinophils (%) (Auto) 1.3 % (0.4-6.7) Basophils (%) (Auto) 1.2 % (0.3-1.4) Nucleated RBC Relative Count (auto) 0.1 /100WBC Neutrophils # (Auto) 6.0 K/uL (2.0-7.4) Lymphocytes # (Auto) 2.5 K/uL (1.3-3.6) Monocytes # (Auto) 0.7 K/uL (0.3-1.0) Eosinophils # (Auto) 0.1 K/uL (0.0-0.5) Basophils # (Auto) 0.1 K/uL (0.0-0.1) Nucleated RBC Absolute Count (auto) 0.01 K/uL Erythrocyte Sedimentation Rate 23 mm/HOUR (0-15) Uric Acid 8.6 mg/dl (3.5-8.5) C-Reactive Protein 1.3 mg/dl (<1.0) Chemistry Test 12/30/17 15:12 White Blood Count 9.5 k/uL (4.5-11.0) Red Blood Count 4.88 M/uL (4.00-5.60) Hemoglobin 14.4 g/dL (14.0-18.0) Hematocrit 42.7 % (42.0-52.0) Mean Corpuscular Volume 87.5 fL (80.0-96.0) Mean Corpuscular Hemoglobin 29.6 pg (26.0-33.0) Mean Corpuscular Hemoglobin Concent 33.8 g/dL (32.0-36.0) Red Cell Distribution Width 16.0 % (11.5-14.5) Platelet Count 252 K/uL (150-450) Mean Platelet Volume 8.7 fL (7.2-11.1) Neutrophils (%) (Auto) 63.1 % (39.4-72.5) Lymphocytes (%) (Auto) 26.9 % (17.6-49.6) Monocytes (%) (Auto) 7.5 % (4.1-12.4) Eosinophils (%) (Auto) 1.3 % (0.4-6.7) Basophils (%) (Auto) 1.2 % (0.3-1.4) Nucleated RBC Relative Count (auto) 0.1 /100WBC Neutrophils # (Auto) 6.0 K/uL (2.0-7.4) Lymphocytes # (Auto) 2.5 K/uL (1.3-3.6) Monocytes # (Auto) 0.7 K/uL (0.3-1.0) Eosinophils # (Auto) 0.1 K/uL (0.0-0.5) Basophils # (Auto) 0.1 K/uL (0.0-0.1) Nucleated RBC Absolute Count (auto) 0.01 K/uL Erythrocyte Sedimentation Rate 23 mm/HOUR (0-15) Uric Acid 8.6 mg/dl (3.5-8.5) C-Reactive Protein 1.3 mg/dl (<1.0) ED Course/Re-evaluation ED Course uric acid slight elevated will treat w colcrys . f/u pcp. he allergic to nsaids but is on custodial morphine therapy which should work for his pain control Re-evaluation pain relieved with 2 doses 0.6 of colcrys Decision to Disposition Date: Dec 30, 2017 Decision to Disposition Time: 16:01 Depart Departure Latest Vital Signs Vital Signs Date Time Temp Pulse Resp B/P (MAP) Pulse Ox O2 Delivery O2 Flow Rate FiO2 12/30/17 14:40 98.0 95 20 132/73 93 Room Air Impression: Primary Impression: Gout attack Condition: Improved Disposition: HOME OR SELF-CARE Referrals: IVÁN ESPINO APRN-C (PCP) 2 Days Patient Instructions: Gout (ED) Additional Instructions: Home with 1 additional colcrys 0.6 mg take this pill in one hour after still having pain follow-up closely with your doctor rest that foot as much as possible return for any problems or concerns SPENCER THOMPSON Dec 30, 2017 14:53
[2017-12-30 15:24] LABS: PLATELET COUNT, AUTOMATED 252 K/uL (150-450)
[2017-12-30] MEDS ORDERED: COLCHICINE 0.6 MG TAB PO ONE ×2 (15:50→16:05)
--- NOTE | 2017-12-30 15:53 | RADIOLOGY IMAGING REPORT ---
FACILITY: [facility] PATIENT NAME: Kendall Al : 1970 MR: [id number] V: [id number] EXAM DATE: ORDERING PHYSICIAN: SPENCER THOMPSON TECHNOLOGIST: Location: [facility] Patient: Kendall Al : 1970 Visit/Account:[id number] Date of Sevice: 12/30/2017 EXAMINATION: Left foot, 3 views 12/30/2017 2:54 PM HISTORY: pain swelling no trauma COMPARISON: None FINDINGS: Varus midfoot curvature with tarsometatarsal arthritic changes with a possible lytic or er osive component. Splaying between the first and second digits with lateral subluxation along the seco nd and third MCPs. Degenerative spurring of the first MTP. Achilles and minimal plantar calcaneal spu rring. IMPRESSION: Arthritic changes in the foot as above, possibly inflammatory or erosive in etiology unless there is known chronic deformity with secondary degenerative changes. No acute bony injury. Report Dictated By: Harry Perez MD at 12/30/2017 3:45 PM Report E-Signed By: Harry Perez MD at 12/30/2017 3:49 PM WSN:[id number]
== END 2017-12-30 16:21 | disposition home or self-care (01) ==
LOC: ER 15:16
DX: M10.072 Idiopathic gout, left ankle and foot (principal)
CPT/HCPCS: 36415; 73630; 84550; 85025; 85651; 86140; 99283; A9270

== ENCOUNTER 2018-01-02 04:32 | Emergency (ER) | payer MEDICARE, MEDICAID ==
--- NOTE | 2018-01-02 04:47 | ER Report ---
History and Physical Time Seen By : 04:42 Hx. of Stated Complaint: gout flare up in left foot, knee and wrist. seen in er a couple days ago. can't get into his doc until saturday. pain untollerable today HPI/ROS CHIEF COMPLAINT: continued gout pain HISTORY OF PRESENT ILLNESS: This is a 47 year old male. Having continued pain in left foot. [place] like perhaps a small amount of relief from colchicine. Having more edema bilaterally, has not been on his lasix for a while now. No other complaints other than not getting much sleep due to the pain. Has an appointment to see his PCP in 5 days. Allergies: Coded Allergies: codeine (Verified Allergy, Severe, BRONCHOSPASM, 01/02/18) NSAIDS (Non-Steroidal Anti-Inflamma (Verified Adverse Reaction, Intermediate, NAUSEA/VOMITING, 01/02/18) Home Meds Active Scripts Prednisone (PREDNISONE) 20 Mg Tablet, 60 MG PO QDAY for 4 Days, #12 TAB 0 Refills Prov:TIM AMBROCIO MD 01/02/18 Morphine Sulfate (MORPHINE SULFATE CR) 60 Mg Tablet.er, 1 TAB PO Q12H, #60 TAB 0 Refills Prov:IVÁN ESPINO APRN-C 12/23/17 Morphine Sulfate (MORPHINE SULFATE) 30 Mg Tablet, 1 TAB PO QID PRN for PAIN, #120 TAB 0 Refills Prov:IVÁN ESPINO APRN-C 12/23/17 Metoprolol Succinate (METOPROLOL SUCCINATE) 25 Mg Tab.er.24h, 1 TAB PO DAILY, #90 TAB 1 Refill Prov:IVÁN ESPINO APRN-C 12/04/17 Levothyroxine Sodium (LEVOTHYROXINE SODIUM) 25 Mcg Tablet, 1 TAB PO QDAY, #90 TAB 0 Refills Prov:IVÁN ESPINO APRN-C 11/18/17 Tramadol Hcl (TRAMADOL HCL) 50 Mg Tablet, 50 MG PO Q4-6H, #6 TAB Prov:BRITT HANDY 11/10/17 Lisinopril (LISINOPRIL) 40 Mg Tablet, 1 TAB PO QDAY, #90 TAB 0 Refills Prov:IVÁN ESPINO APRN-C 10/15/17 Polyethylene Glycol 3350 (MIRALAX) 119 Gm Powder, 17 GM PO DAILY, #2 BOTTLE 1 Refill Prov:DESIRAEIVÁN STOCKTON SCOTT DIRECTOR HYDROGEN STORAGE ENGINEERING-C 08/07/17 Reported Medications Infliximab (REMICADE) 100 Mg Soln, 100 MG IV 05/16/17 Acetaminophen (TYLENOL EXTRA STRENGTH) 500 Mg Tablet, 1000 MG PO QID 03/20/15 Discontinued Scripts Amoxicillin 500 Mg Tab (AMOXICILLIN 500 MG TAB) 500 Mg Tablet, 1 TAB PO Q8H, #30 TAB Prov:BRITT HANDY DIRECTOR HYDROGEN STORAGE ENGINEERING 11/10/17 Reviewed Nurses Notes: Yes Hx Smoking: Yes Smoking Status: Former Smoker Exposure to Second Hand Smoke?: No Hx Substance Use Disorder: No Hx Alcohol Use: No Constitutional Vital Sign - Last 24 Hours 01/02/18 04:35 Temp 97.9 Pulse 79 Resp 18 B/P (MAP) 135/75 Pulse Ox 93 O2 Delivery Room Air Physical Exam General: Alert, no acute distress. Skin: No skin breakdown. tenderness in bottom of foot, similar spot affected in the past. warm and very tender to light touch. CV: Normal capillary refill and pulses. Musculoskeletal: Pain as noted. Neuro: Normal sensation. Medical Decision Making Data Points Result Diagram: 01/02/18 0450 01/02/18 0450 Laboratory Hematology Test 01/02/18 04:50 Red Blood Count 4.67 M/uL (4.00-5.60) Mean Corpuscular Volume 88.5 fL (80.0-96.0) Mean Corpuscular Hemoglobin 29.7 pg (26.0-33.0) Mean Corpuscular Hemoglobin Concent 33.6 g/dL (32.0-36.0) Red Cell Distribution Width 14.9 % (11.5-14.5) Mean Platelet Volume 8.7 fL (7.2-11.1) Neutrophils (%) (Auto) 37.0 % (39.4-72.5) Lymphocytes (%) (Auto) 48.7 % (17.6-49.6) Monocytes (%) (Auto) 8.8 % (4.1-12.4) Eosinophils (%) (Auto) 4.5 % (0.4-6.7) Basophils (%) (Auto) 1.0 % (0.3-1.4) Nucleated RBC Relative Count (auto) 0.0 /100WBC Neutrophils # (Auto) 2.6 K/uL (2.0-7.4) Lymphocytes # (Auto) 3.4 K/uL (1.3-3.6) Monocytes # (Auto) 0.6 K/uL (0.3-1.0) Eosinophils # (Auto) 0.3 K/uL (0.0-0.5) Basophils # (Auto) 0.1 K/uL (0.0-0.1) Nucleated RBC Absolute Count (auto) 0.00 K/uL Sodium Level 141 mmol/L (137-145) Potassium Level 3.5 mmol/L (3.5-5.0) Chloride Level 105 mmol/L (98-107) Carbon Dioxide Level 24 mmol/L (22-30) Blood Urea Nitrogen 16 mg/dl (9-21) Creatinine 0.90 mg/dl (0.66-1.25) Glomerular Filtration Rate Calc > 60.0 Random Glucose 133 mg/dl (75-110) Calcium Level 9.6 mg/dl (8.4-10.2) Total Bilirubin 0.2 mg/dl (0.2-1.3) Aspartate Amino Transf (AST/SGOT) 30 U/L (0-35) Alanine Aminotransferase (ALT/SGPT) 30 U/L (0-56) Alkaline Phosphatase 67 U/L (0-126) Total Protein 7.3 g/dl (6.3-8.2) Albumin 4.0 g/dl (3.5-5.0) Chemistry Test 01/02/18 04:50 White Blood Count 6.9 k/uL (4.5-11.0) Red Blood Count 4.67 M/uL (4.00-5.60) Hemoglobin 13.9 g/dL (14.0-18.0) Hematocrit 41.4 % (42.0-52.0) Mean Corpuscular Volume 88.5 fL (80.0-96.0) Mean Corpuscular Hemoglobin 29.7 pg (26.0-33.0) Mean Corpuscular Hemoglobin Concent 33.6 g/dL (32.0-36.0) Red Cell Distribution Width 14.9 % (11.5-14.5) Platelet Count 245 K/uL (150-450) Mean Platelet Volume 8.7 fL (7.2-11.1) Neutrophils (%) (Auto) 37.0 % (39.4-72.5) Lymphocytes (%) (Auto) 48.7 % (17.6-49.6) Monocytes (%) (Auto) 8.8 % (4.1-12.4) Eosinophils (%) (Auto) 4.5 % (0.4-6.7) Basophils (%) (Auto) 1.0 % (0.3-1.4) Nucleated RBC Relative Count (auto) 0.0 /100WBC Neutrophils # (Auto) 2.6 K/uL (2.0-7.4) Lymphocytes # (Auto) 3.4 K/uL (1.3-3.6) Monocytes # (Auto) 0.6 K/uL (0.3-1.0) Eosinophils # (Auto) 0.3 K/uL (0.0-0.5) Basophils # (Auto) 0.1 K/uL (0.0-0.1) Nucleated RBC Absolute Count (auto) 0.00 K/uL Glomerular Filtration Rate Calc > 60.0 Calcium Level 9.6 mg/dl (8.4-10.2) Total Bilirubin 0.2 mg/dl (0.2-1.3) Aspartate Amino Transf (AST/SGOT) 30 U/L (0-35) Alanine Aminotransferase (ALT/SGPT) 30 U/L (0-56) Alkaline Phosphatase 67 U/L (0-126) Total Protein 7.3 g/dl (6.3-8.2) Albumin 4.0 g/dl (3.5-5.0) ED Course/Re-evaluation ED Course Repeat CBC wtih normal white count. Metabolic panel without changes. Re-dose colchicine. Add Prednisone. Based on edema, would think adding Lasix would be beneficial, even though in some patients diuretics can sometimes worsen gout, but improving edema should be beneficial. Decision to Disposition Date: Jan 02, 2018 Decision to Disposition Time: 05:29 Depart Departure Latest Vital Signs Vital Signs Date Time Temp Pulse Resp B/P (MAP) Pulse Ox O2 Delivery O2 Flow Rate FiO2 01/02/18 04:35 97.9 79 18 135/75 93 Room Air Impression: Primary Impression: Gout attack Condition: Improved Disposition: HOME OR SELF-CARE Referrals: IVÁN ESPINO APRN-C (PCP) New Scripts Prednisone (PREDNISONE) 20 Mg Tablet 60 MG PO QDAY for 4 Days, #12 TAB 0 Refills Prov: TIM AMBROCIO MD 01/02/18 Patient Instructions: Gout (ED) Additional Instructions: Restart your Lasix once a day and keep your feet elevated while at rest. We will give another two doses of Colchicine Also will start Prednisone for 5 days. Keep your appointment with primary care on Saturday. Problem Qualifiers Primary Impression: Gout attack Gout site: foot Gout etiology: unspecified cause Laterality: left Qualified Codes: M10.9 - Gout, unspecified TIM AMBROCIO MD Jan 02, 2018 04:47
[2018-01-02 05:17] LABS: PLATELET COUNT, AUTOMATED 245 K/uL (150-450)
[2018-01-02 05:30] VITALS: BP 114/64
[2018-01-02] MEDS ORDERED: PRED20TA6 PO (05:31)
[2018-01-02] MEDS ORDERED: predniSONE 20 MG TAB PO ONE (05:35)
[2018-01-02] MEDS ORDERED: COLCHICINE 0.6 MG TAB PO ONE (05:35)
== END 2018-01-02 05:50 | disposition home or self-care (01) ==
LOC: ER 05:08
DX: M10.9 Gout, unspecified (principal)
CPT/HCPCS: 36415; 85025; 99283; A9270; J7512; 82040; 82247; 82310; 82374; 82435; 82565; 82947; 84075; 84132; 84155; 84295; 84450; 84460; 84520

== ENCOUNTER → 2018-04-25 | Outpatient (CLI) | payer MEDICARE, MEDICAID ==
[~2018-04-25] MED LIST changes: +CELE100C4 PO; +DULO30CA6 PO; +DULO60CA7 PO; +FLU60VIA41 IM
[2018-04-25 10:19] LABS: LDL CHOLESTEROL 72 mg/dl
== END ==
LOC: LAB 09:22
PROVIDERS: ATTEND Nurse Practitioner Family
DX: E03.9 Hypothyroidism, unspecified (principal); D64.9 Anemia, unspecified; I10 Essential (primary) hypertension; R73.01 Impaired fasting glucose; Z79.899 Other long term (current) drug therapy
CPT/HCPCS: 36415; 82040; 82247; 82310; 82374; 82435; 82465; 82565; 82947; 83718; 84075; 84132; 84155; 84295; 84443; 84450; 84460; 84478; 84520

== ENCOUNTER 2018-05-13 08:00 | Outpatient (RCR) | payer MEDICARE, MEDICAID ==
[2018-02-25 08:06] VITALS: BP 115/74
[2018-02-25] MEDS: CETIRIZINE HCL 10 MG TAB PO PRN (08:34)
[2018-02-25] MEDS: ACETAMINOPHEN 500 MG TAB PO PRN (08:34)
[2018-02-25] MEDS: NS(*) 0.9% 100 ML BAG 100 ML IVPB PRN (08:35)
[2018-04-01 08:18] VITALS: BP 115/67
[2018-04-01] MEDS: ACETAMINOPHEN 500 MG TAB PO PRN (08:34)
[2018-04-01] MEDS: CETIRIZINE HCL 10 MG TAB PO PRN (08:35)
[2018-04-01] MEDS: NS(*) 0.9% 100 ML BAG 100 ML IVPB PRN (08:35)
[2018-04-01 14:33] LABS: PLATELET COUNT, AUTOMATED 249 K/uL (150-450)
[~2018-05-13 08:00] MED LIST changes: +DEXTROSE 5%(*) 100 ML BAG 100 ML IVPB PRN; +LIDOCAINE/SOD BICARB 8.4% SYR ID PRN; +LORATADINE 10 MG TAB PO PRN; +inFLIXimab 100 MG VIAL 700 MG in NS(*) 0.9% 250 ML BAG 250 ML IVPB ONE
[2018-05-13 08:07] VITALS: BP 155/85
[2018-05-13] MEDS: ACETAMINOPHEN 500 MG TAB PO PRN (08:23)
[2018-05-13] MEDS: CETIRIZINE HCL 10 MG TAB PO PRN (08:23)
[2018-05-13] MEDS: NS(*) 0.9% 100 ML BAG 100 ML IVPB PRN (08:23)
[2018-05-13] MEDS ORDERED: inFLIXimab 100 MG VIAL 700 MG in NS(*) 0.9% 250 ML BAG 250 ML IVPB ONE (09:30)
== END 2018-05-20 ==
LOC: SPU 08:00
PROVIDERS: ATTEND Internal Medicine Rheumatology
DX: L40.50 Arthropathic psoriasis, unspecified (principal); Z79.899 Other long term (current) drug therapy
CPT/HCPCS: 96413; 96415; A9270; J1745; J7050; 82040; 82247; 82310; 82374; 82435; 82565; 82947; 84075; 84132; 84155; 84295; 84450; 84460; 84520; 85025; 85651; 86140

== ENCOUNTER 2018-08-08 08:00 | Outpatient (RCR) | payer MEDICARE, MEDICAID ==
[2018-06-24 07:31] VITALS: BP 134/79
[2018-06-24] MEDS: ACETAMINOPHEN 500 MG TAB PO PRN (07:44)
[2018-06-24] MEDS: CETIRIZINE HCL 10 MG TAB PO PRN (07:44)
[2018-06-24 07:48] LABS: PLATELET COUNT, AUTOMATED 273 K/uL (150-450)
[~2018-08-08 08:00] MED LIST changes: +GABA-549; -LORATADINE 10 MG TAB PO PRN; +MORP-21 PO; +NS(*) 0.9% 100 ML BAG 100 ML IVPB PRN; +OXYC10TA67 PO
[2018-08-08 08:11] VITALS: BP 123/79
[2018-08-08] MEDS ORDERED: inFLIXimab 100 MG VIAL 700 MG in NS(*) 0.9% 250 ML BAG 250 ML IVPB ONE (08:20)
[2018-08-08] MEDS: ACETAMINOPHEN 500 MG TAB PO PRN (08:53)
[2018-08-08] MEDS: CETIRIZINE HCL 10 MG TAB PO PRN (08:53)
[2018-08-08] MEDS ORDERED: MORP-21 PO (17:05)
[2018-08-08] MEDS ORDERED: OXYC10TA67 PO (17:05)
[2018-08-08] MEDS ORDERED: GABA-533 PO (17:05)
[2018-09-04] MEDS ORDERED: OXYC10TA67 PO (16:50)
[2018-09-04] MEDS ORDERED: MORP-21 PO (16:50)
[2018-09-04] MEDS ORDERED: GABA-533 PO (16:50)
[2018-09-10] MEDS ORDERED: GABA-533 PO (08:54)
== END 2018-09-21 ==
LOC: SPU 08:00
PROVIDERS: ATTEND Internal Medicine Rheumatology
DX: L40.50 Arthropathic psoriasis, unspecified (principal)
CPT/HCPCS: 96413; 96415; A9270; J1745; J7050; 82040; 82247; 82310; 82374; 82435; 82565; 82947; 84075; 84132; 84155; 84295; 84450; 84460; 84520; 85025; 85651; 86140